=== PATIENT | female | born 1970 | race Caucasian/White ===

== ENCOUNTER → 2021-07-25 15:46 | Outpatient (CLI) | payer OTHER, SELFPAY ==
--- NOTE | ~2021-07-25 | XR_ITS ---
XR chest 2V 07/25/2021 16:35 Indication: Wheezing and cough Procedure: 2 view chest Comparison: No prior studies for comparison. Findings: Heart size normal. No focal air space disease, pulmonary edema, pleural effusion or suspect ed pneumothorax. No acute osseous abnormality. Impression: 1: No acute cardiopulmonary disease. Reviewed, dictated and finalized at location A. Impression: 1: No acute cardiopulmonary disease.
== END ==
PROVIDERS: PCP Family Medicine; Visit Provider Physician Assistant Medical
DX: R06.2 Wheezing (principal)
CPT/HCPCS: 71046

== ENCOUNTER 2022-12-08 08:38 | Emergency (ER) | payer OTHER, SELFPAY ==
--- NOTE | ~2022-12-08 | XR_ITS ---
EXAMINATION: XR chest 2V DATE: 12/08/2022 09:10 INDICATION: Chest pain. TECHNIQUE: Frontal and lateral views of the chest were obtained. COMPARISON: Chest 2 views 07/25/2021 FINDINGS: There is no pneumonia, pleural effusion, or pneumothorax. The heart size is normal. IMPRESSION: 1. No acute cardiopulmonary disease. Reviewed, dictated and finalized at location A. /DISPATCHER
--- NOTE | 2022-12-08 08:42 | ED.CHESTPAIN ---
HPI - Chest Pain General Stated Complaint: Shortness of Breath,Chest Pain Time Seen by Provider: 12/08/22 08:50 Source: patient Mode of arrival: ambulatory Limitations: no limitations History of Present Illness HPI narrative: Kellie is a 52-year-old female patient presenting to the clinic today with complaints of shortness of breath and left-sided chest pain tightness. She reports no history of COPD or asthma. She denies having a cough. States the pain is worse when she is bending forward or when she is laying on her right or left side. States she feels as though she can not take a deep breath as this causes pain. Denies any injury to her chest. Rates her pain currently a 2.5/10. She denies any radiation of pain. She denies any headache, dizziness, or visual changes. She is a nonsmoker. Patient denies any history of hyperlipidemia, high blood pressure, diabetes, or any family history of hyperlipidemia, high blood pressure, or diabetes. Related Data Home Medications Medication Instructions Recorded Confirmed No Home Medications 07/26/21 07/26/21 Allergies Allergy/AdvReac Type Severity Reaction Status Date / Time amoxicillin Allergy Mild HIVES Verified 12/08/22 09:02 ampicillin Allergy Mild hives Verified 12/08/22 09:02 sulfamethizole Allergy Mild hives Verified 12/08/22 09:02 sulfamethoxazole Allergy Mild HIVES Verified 12/08/22 09:02 trimethoprim Allergy Mild hives Verified 12/08/22 09:02 Review of Systems Review of Systems: Pertinent positives per HPI. Patient denies any fever, chills, rash, headache, visual changes, dizziness, cough, palpitations, nausea, vomiting, diarrhea, constipation, abdominal pain, or any urinary issues. [facility] Past Medical History Medical History BMI 33.0-33.9,adult Family History Family History Father Hypertension Grandparent Family history of coronary artery disease Social History Social History Smoking status: Never smoker Second hand tobacco smoke exposure: No Alcohol intake: current Drinks per week: 3 Substance use: never Substance use type: does not use Living arrangements: with family Occupation/Education: occupation Gender identity (if verbalized by the patient): Female Sexual Orientation (if Verbalized by the Patient): Straight or Heterosexual Spiritual care concerns: No Agree to blood products: Yes Comments At the time of my signature, I reviewed and agree with the nursing past medical, surgical, social, and family history. There is no relevant family history pertinent to the patient complaint. Exam Narrative: General: Well-developed, well nourished, in no apparent distress Head: Normocephalic, atraumatic Eyes: Pupils equally round and reactive to light bilaterally, EOM intact, sclera and conjunctive clear, no discharge, lids normal Ears: TMs intact and clear, ear canals clear, no drainage, grossly hearing normal. Nose: Nares patent, no discharge, no inflammation, no sinus tenderness. Mouth: Oral pharynx without lesions or masses, good dentition, MMM. Neck: Supple, trachea midline, no enlargement of anterior or posterior cervical nodes, no thyroid masses or goiter palpable. Chest: Even rise and fall of chest wall with respirations, no bruising or swelling noted, nontender to palpation over the anterior chest wall Cardio: Regular rate and rhythm, s1 and s2 normal, no murmur appreciated. Resp: Clear to auscultation bilaterally, no rhonchi, rales, wheezing or rubs Course Course Emergency Course: Portions of this record may have been created with voice recognition software. Level of Care: Express Care Visit Vital Signs Vital signs: Vital signs reviewed Transfer Transfered to: Fa[facility]o Transportation: Other (Private car) Transfer rationale: Addie
[2022-12-08 08:49] VITALS: BP 116/54; PULSE 63; RESP 18; TEMP 36.4; O2SAT 100
--- NOTE | 2022-12-08 16:05 | ECG_ITS ---
Measurements Intervals [place] Rate: 59 P: 30 MD: 194 QRS: 20 QRSD: 66 T: 23 QT: 394 QTc: 392 Interpretive Statements SINUS BRADYCARDIA BORDERLINE R WAVE PROGRESSION, ANTERIOR LEADS BASELINE ARTIFACT- I, II, III, AVR, AVL, AVF, V1-V6 BORDERLINE ECG COMPARED TO ECG 12/08/2022 08:59:57 SINUS BRADYCARDIA NOW PRESENT Electronically Signed On 12-08-2022 17:18:50 RETARDER OPERATOR by Jun Man D.O.
== END 2022-12-08 09:30 | disposition short-term general hospital (02) ==
PROVIDERS: Emergency Provider Nurse Practitioner Family; PCP Family Medicine
DX: R07.9 Chest pain, unspecified (principal); R06.02 Shortness of breath
CPT/HCPCS: 71046; 93005; 99213; G0463

== ENCOUNTER 2022-12-08 09:38 | Emergency (ER) | payer OTHER, SELFPAY ==
[2022-12-08] VITALS (8 sets, daily range): BP systolic 108–125; BP diastolic 45–82; PULSE 61–69; RESP 17–20; TEMP 36.6; O2SAT 99–100
--- NOTE | ~2022-12-08 | CT_ITS ---
EXAMINATION: CTA chest PE protocol DATE: 12/08/2022 12:02 INDICATION: Shortness of breath. Left-sided chest pain. TECHNIQUE: Computed tomography angiography (CTA) of the chest was performed with 100 mL Omnipaque-350 intravenous contrast timed to evaluate the pulmonary arteries. Coronal maximum intensity projection 3D-reconstructions were created by the technologist. Automated exposure control and iterative reconst ruction technique were employed. The dose-length product was 234.15 mGy-cm. COMPARISON: None. FINDINGS: There is mild scarring in paraspinal right lower lobe. There is minimal atelectasis bilater ally. There is a trace left pleural effusion. There are nodules in the thyroid measuring up to 2.1 cm . The heart size is normal. No pericardial effusion. There is no pulmonary embolus. There is mild tho racic spondylosis. IMPRESSION: 1. No pulmonary embolus. 2. Multinodular goiter. Thyroid ultrasound is recommended for risk stratification. Reviewed, dictated and finalized at location A. HALMOLOGY ASSISTANT IMPRESSION: 1. No pulmonary embolus. 2. Multinodular goiter. Thyroid ultrasound is recommended for risk stratificati on.
--- NOTE | 2022-12-08 09:50 | ED.GENADULT ---
HPI - General Adult General Chief complaint: Shortness of Breath/Dyspnea Stated complaint: sob Time Seen by Provider: 12/08/22 09:46 Source: patient and old records reviewed Mode of arrival: ambulatory Limitations: no limitations History of Present Illness HPI narrative: Patient is a 52 y/o female who presents to the ED with c/o CP. Patient reports she woke up Saturday morning with pain in her L sided and midsternal chest. She states the pain was constant throughout the day. She woke up with the pain, as well. She took Aleve this day which completely resolved her pain. She assumed it was just a muscle strain. She woke up again this morning with the pain and decided to be evaluated. Patient was seen in urgent care prior to arrival and referred here for further evaluation. Patient is very active and walks 2 miles per day. She notes she went bowling last night. She denies any aggravation of pain with exertion or limitations in typical exercising over the last couple days. Pain is worse with bending over, sleeping on left or right sides, taking deep breaths. She denies difficulty breathing, recent cough or cold symptoms, nausea, vomiting, abdominal pain, fevers. Patient denies history of hypertension, hyperlipidemia, diabetes, smoking, family history of heart disease, history of blood clots. Denies recent long distance travel, pain or swelling in legs. Related Data Home Medications Medication Instructions Recorded Confirmed No Home Medications 07/26/21 12/08/22 Allergies Allergy/AdvReac Type Severity Reaction Status Date / Time amoxicillin Allergy Mild HIVES Verified 12/08/22 10:53 ampicillin Allergy Mild hives Verified 12/08/22 10:53 sulfamethizole Allergy Mild hives Verified 12/08/22 10:53 sulfamethoxazole Allergy Mild HIVES Verified 12/08/22 10:53 trimethoprim Allergy Mild hives Verified 12/08/22 10:53 Review of Systems Review of Systems: CONSTITUTIONAL: Denies fever, chills, or sweats. ENT: Denies rhinorrhea, congestion, sore throat. CARDIOVASCULAR: See HPI. RESPIRATORY: See HPI. GASTROINTESTINAL: Denies abdominal pain, nausea, vomiting, or diarrhea. MUSCULOSKELETAL: See HPI. NEUROLOGIC: Denies headache, numbness, or weakness. All systems reviewed & are unremarkable except as noted in HPI and below PMFSH Past Medical History Medical History BMI 33.0-33.9,adult Surgical History Surgical History No pertinent past surgical history Family History Family History Father Hypertension Grandparent Family history of coronary artery disease Social History Social History Smoking status: Never smoker Second hand tobacco smoke exposure: No Alcohol intake: current Drinks per week: 3 Substance use: never Substance use type: does not use Living arrangements: with family Occupation/Education: occupation Gender identity (if verbalized by the patient): Female Sexual Orientation (if Verbalized by the Patient): Straight or Heterosexual Spiritual care concerns: No Agree to blood products: Yes Exam Narrative: GENERAL: Well appearing, well-nourished, non-toxic, in no acute distress. HEAD: Normocephalic, atraumatic. NECK: Supple. No adenopathy, no masses. RESPIRATORY: Airway patent, respirations nonlabored. Clear to auscultation bilaterally, no rales, rhonchi, wheezing. CARDIOVASCULAR: Regular rate and rhythm without murmurs, rubs, or gallops. Radial pulses 2+ and equal bilaterally. ABDOMINAL: Soft, nontender, nondistended, no hepatosplenomegaly. Normoactive BS. MUSCULOSKELETAL: Moves all extremities. Strength/ROM intact without gross deformities. No edema. No calf tenderness. No chest wall tenderness palpation. SKIN: Warm, dry, normal color. No rashes.
--- NOTE | 2022-12-08 09:53 | ECG_ITS ---
Measurements Intervals [place] Rate: 65 P: 51 ME: 186 QRS: 53 QRSD: 81 T: 40 QT: 381 QTc: 396 Interpretive Statements SINUS RHYTHM DELAYED PRECORDIAL R/S TRANSITION SUBTLE ST ELEVATION IN ANTEROLAT/INF LEADS- PROBABLY EARLY REPOLARIZATION ABNORMALITY BASELINE ARTIFACT- I, III, AVR BORDERLINE ECG NO PREVIOUS ECG AVAILABLE FOR COMPARISON Electronically Signed On 12-08-2022 10:16:15 CONTINUOUS DRYOUT OPERATOR by Jun Man D.O.
[2022-12-08 10:27] LABS: Partial Thromboplastin Time 28.3 SECONDS (22.3-36.8)
[2022-12-08 10:34] LABS: Alanine Aminotransferase 20 U/L (6-35); Albumin Level 4.3 g/dL (3.5-5.1); Alkaline Phosphatase 55 U/L (38-126); Anion Gap 5 mmol/L (8-16); Aspartate Amino Transferase 25 U/L (14-36); Bilirubin,Total 1.4 mg/dL (0.2-1.3); Blood Urea Nitrogen 17 mg/dL (7-17); Carbon Dioxide 31 mmol/L (22-30); Chloride 103 mmol/L (98-107); D Dimer 0.58 ug/mL (<0.48); Estimated Glomerular Filt Rate > 60; Glucose 84 mg/dL (65-110); Lipase 127 U/L (23-300); Potassium 4.9 mmol/L (3.4-5.0); Sodium 139 mmol/L (137-145)
[2022-12-08 10:39] LABS: Troponin I < 0.012 ng/mL (0.000-0.034)
[2022-12-08 10:47] LABS: Basophils Percent Auto 0.4 % (0.2-1.2); Eosinophils Absolute Auto 0.1 K/mm3 (0-0.3); Eosinophils Percent Auto 0.6 % (0-4.4); Immature Granulocyte Absolute 0.03 K/mm3 (0.00-0.031); Immature Granulocyte Percent A 0.4 % (0-0.5); Lymphocytes Absolute Auto 1.23 K/mm3 (0.9-3.2); Lymphocytes Percent Auto 15.9 % (18.3-44.2); Mean Corpuscular HGB Conc 33.3 g/dl (32-36); Mean Corpuscular Volume 89.9 fl (80-100); Mean Platelet Volume 9.4 fl (7.4-10.4); Monocytes Absolute Auto 0.7 K/mm3 (0.1-0.6); Monocytes Percent Auto 8.4 % (2.6-8.5); Neutrophils Absolute Auto 5.8 K/mm3 (1.3-6.7); Neutrophils Percent Auto 74.3 % (45.5-73.1); Platelet Count Result 221 k/mm3 (150-375); Red Blood Count 4.67 M/mm3 (4.2-5.4); Red Cell Distribution Width 12.3 % (11.5-14.5); White Blood Count 7.7 K/mm3 (4.5-10.0)
[2022-12-08 11:25] LABS: Appearance Urine Clear (Clear); Bilirubin Urine Negative (Negative); Blood Urine Negative (Negative); Color Urine Yellow (Yellow); Glucose Urine UA Negative (Negative); Ketones Urine Negative (Negative); Leukocyte Esterase Ur Negative LEU/UL (Negative); Nitrate Urine Negative (Negative); Protein Urine Negative (Negative); Specific Grav Ur 1.015 (1.001-1.035); Urobilinogen Urine 0.2 mg/dL (<2.0)
[2022-12-08 11:26] LABS: Add Urine Microscopic? NO
== END 2022-12-08 12:37 | disposition home or self-care (01) ==
PROVIDERS: Emergency Provider Physician Assistant; PCP Family Medicine
DX: R07.89 Other chest pain (principal); E04.2 Nontoxic multinodular goiter; R94.31 Abnormal electrocardiogram [ECG] [EKG]
CPT/HCPCS: 36415; 71046; 71275; 80053; 81003; 81025; 83690; 84484; 85025; 85380; 85610; 85730; 93005; 99284; Q9967

== ENCOUNTER → 2023-02-13 14:49 | Outpatient (CLI) | payer OTHER, SELFPAY ==
--- NOTE | ~2023-02-13 | US_ITS ---
EXAMINATION: US thyroid DATE: 02/13/2023 15:05 INDICATION: Nontoxic single thyroid nodule. TECHNIQUE: Multiple ultrasound images of the thyroid were obtained. COMPARISON: Chest CT 12/08/2022 FINDINGS: The right thyroid lobe measures 6.1 x 1.8 x 1.7 cm. The left thyroid lobe measures 6.6 x 3.0 x 3.4 c m. In the left thyroid lobe, there is a 4.8 cm solid, hypoechoic, wider than tall nodule with smooth margin without echogenic foci (TI-RADS TR4). In the left thyroid lobe, there is a 7 mm solid, very h ypoechoic, wider than tall nodule with smooth margin without echogenic foci (TR4). In the right thyro id lobe, there is a 15 mm solid, isoechoic, wider than tall nodule with ill-defined margin without ec hogenic foci (TR3). In the right thyroid lobe, there is a 10 mm solid, hypoechoic, wider than tall no dule with lobulated margin without echogenic foci (TR4). IMPRESSION: 1. Multinodular goiter. Ultrasound-guided fine-needle aspiration of the 4.8 cm left thyroid nodule is recommended. Reviewed, dictated and finalized at location A.
== END ==
PROVIDERS: PCP Family Medicine; Visit Provider Family Medicine
DX: E04.2 Nontoxic multinodular goiter (principal)
CPT/HCPCS: 76536

== ENCOUNTER 2023-04-08 07:13 | Day surgery (SDC) | payer OTHER, SELFPAY ==
[2023-02-18 10:56] VITALS: BMI 26.1
[2023-03-28 13:16] VITALS: BMI 25.2
--- NOTE | 2023-04-05 13:14 | WPDANESEPPF ---
Anes - Initial Pre Proc Eval Procedure: Operation Date: 04/08/23 09:00 Proposed Procedures p Screening Colonoscopy - Ramin Meade MD Date/Time: 04/05/23 13:14 Surgeon: Ramin Meade MD Pre Op Diagnosis: Neoplasm Screening Patient Data Age: 52 Gender: F Height: 1.7 m Weight: 73 kg Allergies Allergy/AdvReac Type Severity Reaction Status Date / Time amoxicillin Allergy Mild HIVES Verified 04/08/23 07:34 ampicillin Allergy Mild hives Verified 04/08/23 07:34 sulfamethizole Allergy Mild hives Verified 04/08/23 07:34 sulfamethoxazole Allergy Mild HIVES Verified 04/08/23 07:34 trimethoprim Allergy Mild hives Verified 04/08/23 07:34 Home Medications Medication Instructions Recorded Confirmed Type No Home Medications 07/26/21 04/08/23 History Patient hx anesthesia problems: none Family hx anesthesia problems: none Results Review: All pre-operative results and documents have been reviewed as part of the pre-operative evaluation. [facility] Past Medical History Medical History BMI 26.0-26.9,adult BMI 33.0-33.9,adult Screen for colon cancer Screening for lipid disorders Thyroid nodule Surgical History Surgical History No pertinent past surgical history Family History Family History Father Hypertension Grandparent Family history of coronary artery disease Mother , Dementia No problems noted. Sibling No problems noted. 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[employer] Gender identity (if verbalized by the patient): Female Sexual Orientation (if Verbalized by the Patient): Straight or Heterosexual Spiritual care concerns: No Agree to blood products: Yes Anes - Hector Final PreProcedure Day of Procedure 04/05/23 13:14 Patient weight: overweight Heart: regular rate and rhythm Lungs: clear to auscultation Airway: Mallampati scale class II Neurological: alert and oriented Last oral intake: >/= 8 hours ASA classification: II Emergent: no Anesthetic plan: proceed Anesthesia type and monitoring: general GIVS and standard monitoring Results Review: All pre-operative results and documents have been reviewed as part of the pre-operative evaluation. Informed Consent: The patient's anesthetic plan and its attendant risks and benefits were discussed with the patient/family/POA. Questions were solicited and answers provided to the satisfaction of the patient/family/POA.
--- NOTE | 2023-04-05 16:09 | P.HP_ITS ---
History of Present Illness History of Present Illness Consent: Risks, benefits, and alternatives have been discussed and questions answered. Patient agrees to proceed with procedure. Chief complaint: Neoplasm Screening Narrative: Kellie Hutchins is a 52 year old female Referred for colon cancer screening. Review of Systems Review of Systems: All systems reviewed & are unremarkable except as noted in HPI and below PMFSH Past Medical History Medical History BMI 26.0-26.9,adult BMI 33.0-33.9,adult Screen for colon cancer Screening for lipid disorders Thyroid nodule Surgical History Surgical History No pertinent past surgical history Family History Family History Father Hypertension Grandparent Family history of coronary artery disease Mother , Dementia No problems noted. Sibling No problems noted. 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[employer] Gender identity (if verbalized by the patient): Female Sexual Orientation (if Verbalized by the Patient): Straight or Heterosexual Spiritual care concerns: No Agree to blood products: Yes Meds Home Medications and Allergies Home Medications Medication Instructions Recorded Confirmed Type No Home Medications 07/26/21 04/08/23 History Allergies Allergy/AdvReac Type Severity Reaction Status Date / Time amoxicillin Allergy Mild HIVES Verified 04/08/23 07:34 ampicillin Allergy Mild hives Verified 04/08/23 07:34 sulfamethizole Allergy Mild hives Verified 04/08/23 07:34 sulfamethoxazole Allergy Mild HIVES Verified 04/08/23 07:34 trimethoprim Allergy Mild hives Verified 04/08/23 07:34 Exam Resp: Auscultation: clear to auscultation bilaterally Cardio: Rate: regular rate Rhythm: regular rhythm GI: GI Palp: Yes Soft to palpation and No Tenderness to palpation present (GI) Assessment and Plan Assessment and plan (1) Screen for colon cancer: Code(s): Z12.11 - Encounter for screening for malignant neoplasm of colon Status: Acute Assessment and Plan: Colonoscopy with possible biopsy or polypectomy or cautery or injection of substances.
[2023-04-08 07:35] VITALS: BP 106/69; PULSE 60; RESP 18; TEMP 36.7; O2SAT 100
[2023-04-08] MEDS: LACTATED RINGERS 1,000 ML 150 ML IV CONT (07:58)
[2023-04-08 09:05] VITALS: BP 99/56; PULSE 69; RESP 18; O2SAT 18
[2023-04-08 09:15] VITALS: BP 106/71; PULSE 73; RESP 18; O2SAT 100
[2023-04-08 09:25] VITALS: BP 106/68; PULSE 57; RESP 20; O2SAT 100
--- NOTE | 2023-04-08 13:20 | WPDANESPN ---
Anes - Prog Note Post-Op Date/Time: 04/08/23 13:20 Cardiovascular status: normal Respiratory status: normal Airway patency: baseline Mental status: baseline Post-Op hydration status: normal Vital Signs: Last Vital Signs Temp 36.7 C 04/08/23 07:35 Pulse 57 L 04/08/23 09:25 Resp 20 04/08/23 09:25 BP 106/68 04/08/23 09:25 Pulse Ox 100 04/08/23 09:25 O2 Del Method Room Air 04/08/23 09:25 Pain Score (VAS): 0 I/O: Intake & Output 04/07/23 04/08/23 04/08/23 23:59 07:59 15:59 Intake Total 450 Balance 450 Post-procedural complaints: none Patient Feedback: Patient satisfied with anesthetic care. Other Findings: Patient vital signs back to baseline. Patient denies nausea and vomiting. Patient's pain under control. Patient OK for discharge.
== END 2023-04-08 09:40 | disposition home or self-care (01) ==
PROVIDERS: PCP Family Medicine; Visit Provider Internal Medicine Gastroenterology
PROC: 0DJD8ZZ Inspection of Lower Intestinal Tract, Via Natural or Artificial Opening Endoscopic (ICD-10-PCS; CPT 45378; principal; 2023-04-08 09:00)
DX: Z12.11 Encounter for screening for malignant neoplasm of colon (principal)
CPT/HCPCS: 45378

== ENCOUNTER 2023-04-19 09:03 | Outpatient (CLI) | payer OTHER, SELFPAY ==
--- NOTE | ~2023-04-19 | US_ITS ---
EXAMINATION: US FNA w image guidance DATE: 04/19/2023 10:16 INDICATION: Nontoxic single thyroid nodule. TECHNIQUE: The procedure and its benefits and risks were discussed with the patient. Risks specifically discusse d included bleeding. The patient verbalized understanding of the risks and agreed to proceed. The nec k was prepped and draped in the usual sterile manner. 1% lidocaine was used for local anesthesia. 6 passes were made with a 25G needle into the lesion under ultrasound guidance. There were no immedia te complications. FINDINGS: Grayscale ultrasound images demonstrate needles advanced into a 4.8 cm nodule in left thyroid lobe fo r biopsy. IMPRESSION: 1. Ultrasound-guided fine needle aspiration of a left thyroid nodule. Reviewed, dictated and finalized at location A.
== END 2023-04-19 09:04 | disposition home or self-care (01) ==
PROVIDERS: PCP Family Medicine; Visit Provider Nurse Practitioner Family
DX: E04.1 Nontoxic single thyroid nodule (principal)
CPT/HCPCS: 10005; 88173; 88305

== ENCOUNTER → 2023-04-24 12:05 | Outpatient (CLI) | payer OTHER, SELFPAY ==
--- NOTE | ~2023-04-24 | MM_ITS ---
EXAMINATION: MM screening sherine BI w kandy HISTORY: Screening TECHNIQUE: Craniocaudal and mediolateral oblique 3-D tomosynthesis images were obtained and synthetic 2-D images were generated. CAD analysis was submitted and interpreted. COMPARISON: Comparison to multiple prior studies sequentially, with oldest reviewed study dated 09/19. BREAST PARENCHYMAL COMPOSITION: The breasts are extremely dense, which lowers the sensitivity of mamm ography. FINDINGS: There is no evidence of suspicious mass, calcification, or architectural distortion to sugg est malignancy in either breast. There has been no suspicious interval change. IMPRESSION: 1. No mammographic evidence of malignancy. 2. Recommend routine screening mammography in one year. BI-RADS Category 1: Negative Reviewed, dictated and finalized at location A.
== END ==
PROVIDERS: PCP Nurse Practitioner Obstetrics & Gynecology; Visit Provider Nurse Practitioner Obstetrics & Gynecology
DX: Z12.31 Encounter for screening mammogram for malignant neoplasm of breast (principal)
CPT/HCPCS: 77063; 77067

== ENCOUNTER 2024-11-03 14:53 | Outpatient (CLI) | payer OTHER, SELFPAY ==
--- NOTE | ~2024-11-03 | MM_ITS ---
EXAMINATION: MM screening sherine BI w kandy HISTORY: Screening TECHNIQUE: Craniocaudal and mediolateral oblique 3-D tomosynthesis images were obtained and synthetic 2-D images were generated. CAD analysis was submitted and interpreted. COMPARISON: Comparison to multiple prior studies sequentially, with oldest reviewed study dated 04/2015. BREAST PARENCHYMAL COMPOSITION: Dense: The breasts are extremely dense, which lowers the sensitivity of mammography. FINDINGS: There is no evidence of suspicious mass, calcification, or architectural distortion to sugg est malignancy in either breast. There has been no suspicious interval change. IMPRESSION: 1. No mammographic evidence of malignancy. 2. Recommend routine screening mammography in one year. BI-RADS Category 1: Negative Reviewed, dictated and finalized at location B. CTOR AUTO
== END 2024-11-03 14:54 | disposition home or self-care (01) ==
LOC: MICIMG 14:54
PROVIDERS: PCP Family Medicine; Visit Provider Obstetrics & Gynecology
DX: Z12.31 Encounter for screening mammogram for malignant neoplasm of breast (principal)
CPT/HCPCS: 77063; 77067

== ENCOUNTER 2025-09-20 06:29 | Day surgery (SDC) | payer OTHER, SELFPAY ==
[2025-06-28 14:26] VITALS: BMI 26.4
[2025-09-08 10:58] VITALS: BMI 26.5
--- OUTSIDE RECORDS SUMMARY | 2025-09-20 06:31 | XMS_ITS | Clinical Summary ---
Author Organization [facility] Address [address] [place] [address] Care Team Providers Care Wire Photo Operator Name Role Phone Unavailable Primary Care Provider Unavailabl e Social History Tobacco Use Types Packs/Day Years Used Date Smoking Tobacco: Never Assessed Comments Unknown Sex and Gender Information Value Date Recorded Sex Assigned at Not on file Legal Sex Female 7:16 PM CDT Gender Identity Not on file Sexual Orientation Not on file Plan of Treatment Health Maintenance Due Date Last Done Comments Cervical Cancer Screening Pa p Smear (Age 30 to 64) Every 3 Years 1972 Colorectal Cancer Screening Colonoscopy (10 Years) 1972 Annual Physical 1975 Hepatitis C 1990 DTaP, Tdap and Td Vaccines ( 1 - Tdap) 1991 Hepatitis B Vaccines (1 of 3 - 19+ 3-dose series) 1991 Cervical Cancer Screening Pa p with HPV Testing (Age 30 to 64) Every 5 Years 2002 Cervical Cancer Screening with HPV 2002 Mammogram Screening 2012 Pneumococcal Vaccine: 50+ Ye ars (1 of 1 - PCV) 2022 Zoster Vaccines (1 of 2) 2022 COVID-19 Vaccine ( - 2024-2 6 season) 2025 Influenza Adult (#1) 2025 Hepatitis A Vaccines Aged Out No long er eligible based on patient's age to complete this topic Meningococcal B Vaccine Aged Out No l onger eligible based on patient's age to complete this topic Meningococcal Vaccine Aged Out No curt urszula eligible based on patient's age to complete this topic RSV Immunizations Under 20 Months Aged Out No longer eligible based on patient's age to complete this topic
--- OUTSIDE RECORDS SUMMARY | 2025-09-20 06:31 | XMS_ITS | Data Portability ---
Author Organization [facility] [place] Address [address] [place] [address] [place] [address] Care Team Providers Care Associate Quality Engineer Name Role Phone WING RICHARDS Primary Care Provider Assessment Encounter Date Assessment Date Assessment LastModified by Organization Details LastModified Time 11/15/2022 11/15/2022 Annual gynecological exam performed. Patient will come back in a year unless there are new symptoms. [email or web address] Not available 11/15/2022 14:07:24 11/29/2023 11/29/2023 Annual gynecological exam performed. Patient will come back in a year unless there are new symptoms. [email or web address] Not available 11/29/2023 09:00:53 12/02/2024 12/02/2024 Annual gynecological exam performed. Patient will come back in a year unless there are new symptoms. [email or web address] Not available 11/30/2024 12:16:08 Plan of Treatment Reminders Order Date Submit Date Provider Last Modified By Organization Details Last Modified Time Details Appointments None recorded. Lab hormone panel, serum or plasma 2024 025 [facility] (Lab), [address], [place], [address], 03:59:32 test, urine 2024 025 [email or web address] [place], [address], [place], [address], 5 12:42:16 Referral None recorded. Procedures None recorded. Surgeries None recorded. Imaging MAMMO, screening, digital, bilateral 2024 025 LINSEY [facility], [address], [place], [address], 5 05:01:42 MAMMO, screening, bilateral 2023 024 [email or web address] [facility], [address], [place], [address], 4 11:33:47 Medication Orders None recorded. Patient TargetsNo targets recorded. Patient InstructionsNo instructions recorded. Reason for Referral None Reported. 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 Elect honey hernandez smooth d by Dana Clay, CT on 023 at 5:49 PM ----- ----- ----- ----- ----- ----- ----- ----- ----- ----- ----- ----- ----- ----- ----- ----- ----- ---- HPV RESUL TS: HPV mRNA E6/E7 : No HPV mRNA Detec chetna NOTE: This high risk HPV mRNA assay detec ts fourt een high- risk HPV types (16, 18, 31, 33, 35, 39, 45, 51, 52, 56, 58, 59, 66, 68) witho ut diffe renti ation . COMME NT: Note: This speci men was revie wed by a Cytot echno logis t and/o r Patho logis t (as indic ated in this repor t) after evalu ation using the Thinp rep Imagi ng Syste m. CLINI ALONZO INFOR MATIO N: Menst rual Statu s: LMP (if appli cable ): Clini alonzo Histo ry/Pr eviou s Pap: Type of Neopl sudhakar (if appli cable ): Signi fican t Clini alonzo Findi ngs: Other Histo ry: Hormo deonte (if appli cable ): PAP EDUCA MARIANO L NOTE: The Pap Test is a scree kush test with an inher ent false negat ryan rate. Liqui d-bas ed sampl ing may decre ase, but will not elimi jeanette, false negat ryan resul ts. A negat ryan resul t does not precl ude the prese nce and/o r devel opmen t of disea se, since the prese nce of abnor mal cells in the sampl e depen ds on the locat ion of the lesio n and sampl ing techn ique. Nate nued regul ar scree kush is the best metho d of cance r preve ntion . If repor chetna cytol ogic findi ng do not corre late with physi alonzo and/o r histo rical findi ngs, furth er inves tigat ion is recom low d, as jose david matias nted. 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 Elect honey hernandez smooth d by Rhoda Harmon, CT on 2023 at 2:46 PM ----- ----- ----- ----- ----- ----- ----- ----- ----- ----- ----- ----- ----- ----- ----- ----- ----- ---- HPV RESUL TS: HPV mRNA E6/E7 : No HPV mRNA Detec chetna NOTE: This high risk HPV mRNA assay detec ts fourt een high- risk HPV types (16, 18, 31, 33, 35, 39, 45, 51, 52, 56, 58, 59, 66, 68) witho ut diffe renti ation . COMME NT: This speci men was revie wed by a Cytot echno logis t and/o r Patho logis t (as indic ated in this repor t) after evalu ation using the Thinp rep Imagi ng Syste m. CLINI ALONZO INFOR MATIO N: Menst rual Statu s: LMP (if appli cable ): Clini alonzo Histo ry/Pr eviou s Pap: Type of Neopl sudhakar (if appli cable ): Signi fican t Clini alonzo Findi ngs: Other Histo ry: Hormo deonte (if appli cable ): PAP EDUCA MARIANO L NOTE: The Pap Test is a scree kush test with an inher ent false negat ryan rate. Liqui d-bas ed sampl ing may decre ase, but will not elimi jeanette, false negat ryan resul ts. A negat ryan resul t does not precl ude the prese nce and/o r devel opmen t of disea se, since the prese nce of abnor mal cells in the sampl e depen ds on the locat ion of the lesio n and sampl ing techn ique. Nate nued regul ar scree kush is the best metho d of cance r preve ntion . If repor chetna cytol ogic findi ng do not corre late with physi alonzo and/o r histo rical findi ngs, furth er inves tigat ion is recom low d, as clini serina warraiden nted. Not Available [facility] (Lab) [address] , [place], [address], 12/02/2023 15:50:06 05/24/20 25 05/24/2025 pregn shelly test, urine HCG negati ve Not Available [place] [address], [place], [address], 05/24/2025 12:41:46 08/16/20 25 08/16/2025 FSH, LH, ESTRA DIOL estradiol <5.0 pg/mL This assay was perfo rmed using [employer] ratio n reage nts and test kits. Value s obtai daxa with other assay metho ds or kits canno t be used inter patel eably . Femal e Estra diol Range s: Folli cular phase 12.4- 233 pg/mL Ovula tion phase 41.0- 398 pg/mL Lutea l phase 22.3- 341 pg/mL Postm enopa usal <5-13 8 pg/mL Healt hy Pregn ant Women 1st Trime ster 154-3 243 pg/mL 2nd Trime ster 1561- 67245 pg/mL 3rd Trime ster 8525- >3000 0 pg/mL Not Available [facility] (Lab) [address] , [place], [address], 08/17/2025 03:59:32 08/16/20 25 08/16/2025 FSH, LH, ESTRA DIOL FSH 100.0 mIU/m L This assay was perfo rmed using [employer] reage nts and test kits. Value s obtai daxa with other assay metho ds or kits canno t be used inter patel easaint joseph . Femal es Folli cular : 3.5-1 2.5 mIU/m L Ovula tion: 4.7-2 1.5 mIU/m L Lutea l: 1.7-7 .7 mIU/m L Postm enopa use: 25.8- 134.8 mIU/m L Not Available [facility] (Lab) [address] [facility], [place], [address], 08/17/2025 03:59:32 08/16/20 25 08/16/2025 FSH, LH, ESTRA DIOL LH 44.4 mIU/m L This assay was perfo rmed using [employer] reage nts and test kits. Value s obtai daxa with other assay metho ds or kits canno t be used inter [facility] easaint joseph . Femal es Mid-F ollic ular: 2.4-1 2.6 mIU/m L Mid-C ycle: 14.0- 95.6 mIU/m L Mid-L uteal : 1.0-1 1.4 mIU/m L Postm enopa use: 7.7-5 8.5 mIU/m L Not Available [facility] (Lab) [address] [place], [address], 08/17/2025 03:59:32 Result Notes None recorded. Problems Name Problem SNOMED Code Status Onset Date Resolution Date Notes Provider Name and Address Organization Details Recorded Time Intrauteri ne contracept ryan device in situ 824005099 Active inserted 05/28/2017 Martine Bucio [facility] 13:55:37 Problem Notes None recorded. Procedures Surgical History Date Name Laterality Status Provider Name and Address Organization Details Recorded Time 05/24/20 25 IUD Removal completed QUENTIN MURPHY NP [address], [place], [address], [facility] 05/24/2025 09:24:58 10/18/20 24 Date of Last Mammogram completed [facility] 12/02/2024 09:07:00 11/29/19 24 Date of Last Pap Smear completed [facility] 11/30/2024 12:16:51 11/18/19 23 Date of Last Colonoscopy completed QUENTIN MURPHY NP [address], [place], [address], [facility] 12/02/2024 09:12:20 06/02/20 13 Colposcopy completed [facility] 11/15/2022 13:49:18 06/02/20 12 Colposcopy completed [facility] 11/15/2022 13:39:36 07/19/20 09 section completed [facility] 11/15/2022 13:49:05 11/18/19 01 Colposcopy completed [facility] 11/15/2022 14:11:45 Imaging Results None recorded. Procedure Notes None recorded. Medical Equipment None Reported. Allergies Allergen ID Allergen Name Allergen Category Reaction Reaction Severity Criticality Documentation Date Start Date Code Code System Note Provider Name and Address Organization Details Recorded Time 16490 ampicilli n medicatio n Not available Not available Not available 11/04/2020 733 RxNorm Comme nt: [facility]at [facility]; Not Available [facility] 0 14:17:57 56632 sulfameth oxazole medicatio n Not available Not available Not available 11/04/2020 88127 RxNorm Comme nt: Locat ion: [facility] Cau sativ e Agent : Septr a DS; Not Available [facility] 0 14:17:57 17443 trimethop rim medicatio n Not available Not available Not available 11/04/2020 34560 RxNorm Comme nt: Locat ion: [facility] Cau sativ e Agent : Septr a DS; Not Available [facility] 0 14:17:57 Medications Name Sig Start Date Stop Date Status Note LastModified by Organization Details LastModified Time Mirena 21 mcg/24 hr (up to 8 years) 52 mg intrauter ine device 2016 active Prescrib ed Elsewher e: No Locat ion: Gisselle Ricketts [facility] odify By: marcello cordova DateTime : 06/11/20 12 11:30:00 AM Not Available Not Available Not Available methocarb macie 500 mg tablet TAKE 1 TABLET BY MOUTH THREE TIMES A DAY NEEDED FOR MUSCLE SPASM 05/23 completed Not Available Not Available Not Available prednison e 10 mg tablet 30 MG ORALLY DAILY FOR 5 DAYS 05/23 completed Not Available Not Available Not Available triamcino lone acetonide 0.5 % topical cream APPLY TOPICALL Y TWICE A DAY 05/23 completed Not Available Not Available Not Available Diflucan 150 mg tablet take 1 tablet by oral route once 06/18 completed Prescrib ed Elsewher e: No [facility] odify By: merlene hernandezuntemerita DateTime : 01/04/20 17 01:59:22 PM Not Available Not Available Not Available scopolami ne 1 mg over 3 days transderm al patch APPLY 1 PATCH TRANSDER MIRTHA EVERY 72 HOURS 05/23 completed Not Available Not Available Not Available fiber oral powder 05/23 completed Prescrib ed Elsewher e: Yes Loca tion: Gisselle Ricketts [facility] odify By: marcello cordova DateTime : 06/10/20 12 01:00:00 PM Not Available Not Available Not Available Fiber (psyllium husk) 0.52 gram capsule 05/07 completed Prescrib ed Elsewher e: Yes [facility] By: marcello cordova DateTime : 05/06/20 12 08:37:16 PM Not Available Not Available Not Available nitrofura ntoin monohydra te/macroc rystals 100 mg capsule TAKE 1 CAPSULE EVERY 12 HOURS FOR 5 DAYS . TAKE WITH FOOD/LEONARDO L 12/02 completed Not Available Not Available Not Available Fish Oil active Not Available Not Avai lable Not Available selenium sulfide 2.5 % lotion apply by topical route every day for 7 days to the affected area(s) 11/02 completed Prescrib ed Elsewher e: No Locat ion: [facility] odify By: pb tz Encou nter DateTime : 10/27/20 13 02:30:00 PM Not Available Not Available Not Available Vitals Date Recorded Body weight Body mass index (BMI) Body height Systolic And Diastolic Provider Name and Address Organization Details Last Updated DateTime 11/29/2023 28882.93 g 27.4 kg/m2 166.37 cm 114/74 mm[Hg] Argenis Valenzuela [facility] 11/29/2023 09:03:48 Date Recorded Body height Body mass index (BMI) Body weight Systolic And Diastolic Provider Name and Address Organization Details Last Updated DateTime 12/02/2024 166.37 cm 27.8 kg/m2 66551.98 g 122/74 mm[Hg] [facility] 12/02/2024 09:06:38 Date Recorded Body height Body mass index (BMI) Body weight Systolic And Diastolic Provider Name and Address Organization Details Last Updated DateTime 05/24/2025 166.37 cm 27.4 kg/m2 27789.36 g 131/76 mm[Hg] [facility] 05/24/2025 09:15:51 Date Recorded Body height Body mass index (BMI) Body weight Systolic And Diastolic Provider Name and Address Organization Details Last Updated DateTime 11/15/2022 166.37 cm 26.7 kg/m2 35373.56 g 132/68 mm[Hg] Martine Bucio [facility] 11/15/2022 14:08:12 Social History Question Answer Notes LastModified by Organizat ion Details LastModified Time Tobacco Smoking Status Never [facility]oker [facility] 11/29/2023 08:54:44 How Many Years Have You Consumed Alcohol? 30 [email or web address] Information not available 11/15/2022 Are You Blind Or Do You Have Difficulty Seeing? No [email or web address] Information n ot available 11/15/2022 What Is Your Level Of Caffeine Consumption? Moderate [email or web address] Information not available 11/15/2022 How Much Tobacco Do You Chew? None [email or web address] Information not available 11/15/2022 In The 14 Days Before Symptom Onset, Have You Had Close Contact With A Laboratory-confirm ed COVID-19 While That Case Was Ill? No [email or web address] Information n ot available 11/15/2022 In The 14 Days Before Symptom Onset, Have You Had Close Contact With A Person Who Is Under Investigation For COVID-19 While That Person Was Ill? No [email or web address] Information not available 11/15/2022 Have You Been To An Area Known To Be High Risk For COVID-19? No [email or web address] Information not available 11/15/2022 Are You Deaf Or Do You Have Serious Difficulty Hearing? No [email or web address] Information not available 11/15/2022 What Type Of Diet Are You Following? REGULAR [email or web address] Information n ot available 11/15/2022 What Is The Highest Grade Or Level Of School You Have Completed Or The Highest Degree You Have Received? [id number] [email or web address] Information not available 11/15/2022 Have You Ever Been Counseled For Unhealthy Alcohol Use? No [email or web address] Information not available 11/29/2023 Do You Use Protection During Sex? No [email or web address] Information not available 11/15/2022 Do You Use Your Seat Belt Or Car Seat Routinely? Yes Information not available 11/15/2022 Do You Have Smoke And Carbon Monoxide Detectors In Your Home? Yes [email or web address] Information not available 11/15/2022 How Much Tobacco Do You Smoke? No [email or web address] Information not available 11/15/2022 Do You Use Sunscreen Routinely? Yes [email or web address] Information not available 11/15/2022 Has Tobacco Cessation Counseling Been Provided? No [email or web address] Information not available 11/29/2023 Have You Used IV Drugs? No [email or web address] Information not available 11/15/2022 Do You Have Difficulty Walking Or Climbing Stairs? No [email or web address] Information not available 11/29/2023 Sex: Unknown Functional Status Question Answer Note LastModified by Organizat ion Details LastModified Time Do you use any illicit or recreational drugs? No [email or web address] Information not available 11/15/2022 Do you or have you ever used any other forms of tobacco or nicotine? No [email or web address] Information not available 11/29/2023 What is your level of alcohol consumption? Occasional [email or web address] Information not available 11/15/2022 Are you able to walk independently without assistance or assistive devices? YESWOREST Information not available 11/15/2022 Are you able to care for yourself independently? 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 No [email or web address] Information not available 11/29/2023 What is your exercise level? Moderate [email or web address] Information not available 11/15/2022 Mental Status Question Answer Note LastModified by Organization D etails LastModified Time Do you feel stressed (tense, restless, nervous, or anxious, or unable to sleep at night)? [id number] [email or web address] Information not available 11/15/2022 Family History Relationship Description Onset Age of this Age Resolved Age Notes LastModified by Organization Details LastModified Time Father Hypertensive disorder [email or web address] Not available 11/15 13:47:49 Mother Disorder of thyroid gland [email or web address] Not available 11/15 13:47:56 Mother Alzheimer's disease [email or web address] Not available 2024 09:00:25 Maternal Grandfather Diabetes mellitus [email or web address] Not available 11/15 13:47:42 Notes:Family history of Thyr oid disease, Family history of Hypertension Father: Hypertension Maternal grandfather: Diabetes mellitus Mother: Thyroid disease Medical History Condition Response Allergies (Food, seasonal, environmental ) N Other N Breast Cancer N Drug/Latex Allergies/Reactions N Blood Transfusion N Dermatologic Disorders N Lung Disease N Defects or Inherited Disease N Breast Problem N Gestational Diabetes Y Hematologic disorders N Anesthesia Complications N History of STI Y Deep Vein Thrombosis N Polycystic ovary syndrome N Anxiety Disorder N Autoimmune disease N Arthritis N Infertility N Polyps N Acid Reflux (GERD) N History of abnormal pap Y Cancer N Stroke N Varicosities N Neurologic/Epilepsy N Endometriosis N High Cholesterol N Headaches N Fibromyalgia N Kidney Disease N Heart Problems N Kidney or Bladder Problems N Thyroid Problems N GI Problems N Eating Disorder N Anemia N Art (IVF or FET) N Psychiatric Illness N Ovarian Cancer N Diabetes Y Pulmonary (TB, Asthma) N Hepatitis/Liver Disease N No Past Medical History Y Eczema N Urinary Tract Infection N Abuse/Domestic Violence N Asthma N Trauma/Violence N Depression/ depression N Heart Disease N Pre-Eclampsia N Hypertension N Osteoporosis N Thrombophilias N Gynecological History Statement/Question Response Abnormal Pap Y Date of Last Mammogram 10/18/2024 Date of LMP 01/02/2017 STIs/STDs Y HPV Vaccine N Colposcopy 06/02/2012 Current Control Method None Age at First Child 38 Are cycles usually normal N Date of Last Colonoscopy 11/18/2022 Sexually Active? Y Menses Monthly N Date of DEXA bone scan Age of first menstrual cycle 13 Date of Last Pap Smear 11/29/2023 Sexual Problems? Y Desired Control Method None LMP Unknown Obstetrics History GPAL:G 1 P 1 0 0 1 Type Value Full Term 1 Living 1 Total 1 Past Encounters Encounter ID Performer Location Encounter Start Date Encounter Closed Date Diagnosis/Indication Diagnosis SNOMED-CT Code Diagnosis ICD10 Code Diagnosis IMO Codes Diagnosis Note [id number] [facility] [address] [address] 11/15/2022 13:36:11 11/17/2022 18:58:41 Gynecologic examination 08955172 Z01.419 Z11.51 Suggested Calcium with Vitamin D 1200-1500m g daily. Patient advised to get an annual flu shot in the fall and she could obtain at [facility] or [facility] clinic. Also to obtain TDap vaccinatio n if you have not had one in the last 10 years. Recommend yearly mammograms . Encouraged monthly self breast exams. Encourage safe sexual practices, to use condoms and limit partners if not already in a monogamous relationsh ip. Engage in daily exercise of low impact aerobic exercise 45-60 minutes 4-5 times weekly. Avoid tobacco and illicit drugs as well as using moderation with alcohol intake less than 1-2 8 oz beverages daily. This lifestyle behavior pattern will lead to less health conditions and longer life span. If BMI greater than 25 weight watchers or dietary consult advised. All questions have been answered. Patient appears to understand informatio n, but if you have any questions please call or respond to this email. Pap/hpv sent STD Screen declined Genetic Screen discussed Colon Screen PCP Dexa Screen na Routine Labs PCPMammo PCP [id number] Christiano Case MD [place] [address] [address] 05/24/2025 08:59:54 05/24/2025 09:38:15 Removal of intrauterine contraceptive device [id number] Z30.508 [id number] 1. IUD removed on 05/24/25with out difficulty 2. Patient desires to check hormone labs in 8-12 weeks to ensure she is in menopause. Labs ordered.Mo nitor for bleeding, recommende d using back up protection until labs completed. [id number] [facility] [address] [address] 11/29/2023 08:54:21 11/29/2023 09:30:19 Gynecologic examination 22281511 Z01.419 Z11.51 Take Calcium with Vitamin D 12-1500mg daily. Do monthly self breast exams. It is advised to get annual flu shot in the fall and she could obtain at [facility] or [facility] care clinic. If you haven't received the Tdap vaccine in the last 10 years you should obtain one as well. Have mammogram yearly, bone density every 2-3 years and colonoscop y every 5-10 years depending on findings and history. Engage in daily exercise of low impact aerobic exercise 45-60 minutes 4-5 times weekly. Avoid tobacco and illicit drugs as well as using moderation with alcohol intake less than 1-2 8 oz beverages daily. This lifestyle behavior pattern will lead to less health conditions and longer life span. If BMI greater than 25 weight watchers or dietary consult advised. Questions have been answered. Patient appears to understand instructio ns, but if you have any further questions call or respond to this email Pap/hpv sentSTD Screen declinedGe netic Screen discussedC olon Screen UTD PCPDexa Screen naRoutine Labs UTD PCP A Mirena IUD prevents for up to 8 years, and also helps with heavy periods for up to 5 years in women who choose an IUD for control. Screening mammography 24 [id number] Z12.31 [id number] Christiano Case MD [place] [address] [address] 12/02/2024 08:58:37 12/02/2024 09:24:30 Gynecologic examination [id number] Z01.419 Annual gynecologi alonzo exam performed. Patient will come back in a year unless there are new symptoms. Suggest Calcium with Vitamin D if not eating in diet. Patient advised to get annual flu shot. Recommend yearly physicals and perform monthly breast exams. Genetic testing is available for patients with family history of cancer. Engage in safe sexual practices, use condoms. Encouraged to have daily exercise. Avoid tobacco and illicit drugs, moderation of alcohol. If BMI greater than 25 dietary consult advised. If you have any questions please call or email. mammogram- UTD, order given, pt to schedule colon cancer screening - UTD PCP DEXA scan- n/a Pap smear- UTD (2023 - ), will repeat in 2026 per ASCCP guidelines laboratory evaluation - PCP STI testing - declined A Mirena IUD prevents for up to 8 years, and also helps with heavy periods for up to 5 years in women who choose an IUD for control.Ton tiejacqueline's IUD expires 05/2025, pt to RTO for removal Screening mammography 24 [id number] Z12.31 Health Concerns Section Related Observation LastModified by Organization Detai ls LastModified Time None Recorded Concern Status LastModified by Organization Details LastModified Time None Recorded Advance Directives Directive None Recorded Payers Insurance Date Sequence Insurance Name Policy Number Policy Rubi Covered Member ID Rubi Member ID Guarantor Name 05/24/2025 1 [facility] [id number] Kellie Hutchins [id number] Kellie Hutchins Notes Date Note Type Note Provider Name and Address Organization Details Recorded Time 11/15/20 22 text/ht ml Annual GYNReported by PatientHistoryFor history, patient reportsno gynecologic complaints.Genitourinary symptomsFor menstrual cycle, patient reportsnormal menses (amenorrheic on iud mirena). For urinary symptoms, patient reportsno hematuriaandno incontinence. For vulva, patient reportsno genital lesion. For vagina, patient reportsnormal vaginal discharge.Breast symptomsFor breast, patient reportsno breast pain,no breast lump, andno nipple discharge.Endocrine symptomsFor sexual complaints, patient reportsno sexual complaints,no pain during intercourse, andnormal libido. For menopausal symptoms, patient reportsno menopausal symptomsandnormal vaginal lubrication.Psychological symptomsFor psychological symptoms, patient reportsno depression,no anxiety, andno pmdd.Preventative measuresFor preventive measures, patient reportsencourage self breast examination,encourage regular exercise,encourage no tobacco use,encourage regular mammograms starting age 40,followed with yearly pap smears,mammogram performed within the past year, andup to date on colonoscopy screening. Penny Sheehan, [facility]- [address], [place], [address], [facility] 11/17/2022 09:28:31 11/29/19 24 text/ht ml Annual GYNReported by PatientGenitourinary symptomsFor menstrual cycle, patient reportsnormal menses (amenorrheic on iud mirena). For urinary symptoms, patient reportsno hematuriaandno incontinence. For vulva, patient reportsno genital lesion. For vagina, patient reportsnormal vaginal discharge.Breast symptomsFor breast, patient reportsno breast pain,no breast lump, andno nipple discharge.ContraceptionFor current contraception, patient reportssatisfied with current contraceptionandintrauterine device (iud).Endocrine symptomsFor sexual complaints, patient reportsno sexual complaints,no pain during intercourse, andnormal libido. For menopausal symptoms, patient reportsno menopausal symptomsandnormal vaginal lubrication.Psychological symptomsFor psychological symptoms, patient reportsno depression,no anxiety, andno pmdd.Preventative measuresFor preventive measures, patient reportsencourage self breast examination,encourage regular exercise,encourage no tobacco use,encourage regular mammograms starting age 40,followed with yearly pap smears,needs to schedule mammogram, andup to date on colonoscopy screening. Penny Sheehan, [facility]- [address], [place], [address], [facility] 11/29/2023 09:22:56 12/02/19 25 text/ht ml Annual GYNReported by PatientHistoryFor history, patient reportsno gynecologic complaints.Genitourinary symptomsFor urinary symptoms, patient reportsno hematuriaandno incontinence. For vulva, patient reportsno genital lesion. For vagina, patient reportsnormal vaginal discharge. For menstrual cycle, (no cycles with iud).Breast symptomsFor breast, patient reportsno breast pain,no breast lump, andno nipple discharge.ContraceptionFor current contraception, patient reportssatisfied with current contraceptionandintrauterine device (iud).Endocrine symptomsFor sexual complaints, patient reportsno sexual complaints,no pain during intercourse, andnormal libido. For menopausal symptoms, patient reportsno menopausal symptomsandnormal vaginal lubrication.Psychological symptomsFor psychological symptoms, patient reportsno depression,no anxiety, andno pmdd.Preventative measuresFor preventive measures, patient reportsencourage self breast examination,encourage regular exercise,encourage no tobacco use, andencourage regular mammograms starting age 40. Patient presents for annual well woman exam. Patient denies concerns today. QUENTIN MURPHY NP [address], [place], [address], [facility] 12/02/2024 09:23:15 05/24/20 25 text/ht ml Patient presents for Mirena IUD removal.UPT negative.Informed consent obtained. Nena garcia, [facility] 05/24/2025 12:42:19 OBGyn Episode Ob Episode Information Episode Created Date Number of Fetuses Patient Bloodtype Patient rh Status Prepregnancy Weight lbs Domestic Partner Domestic Partner Phone Father Name District Superintendent Status 11/15/20 22 1 CLOSED Fetus Data First Name Last Name Admitted to NICU Weight (g) Sex Living Outcome Pediatric Complications Fetus ID Race Codes Race Delivery Type [phone] F Full Term [id number] Primary Yevgeniy Calculation Initial Yevgeniy Date Initial Exam Date Initial Exam Provider Initial Ultrasound Date Last Menstrual Period Date Ultra Sound Weeks Gestation 0 Eighteen To Twenty Week Yevgeniy Update Ultra Sound Date Fundal Height At Umbil Quickening Date Ultra Sound Latest Weeks Gestation Final Yevgeniy Confirmed By Final Yevgeniy Confirmed Date Final Yevgeniy Date Ultra Sound Latest Days Gestation 0 0 Menstrual History Last Menstrual Date Menses Monthly On Bcp Conception Prior Menses Frequency Hcg Plus Date Menarche Onset Age Delivery Information Delivery Date Delivery Type Labor Anesthesia Weeks Gestation Incision Type Labor Labor Length Hrs Delivered By Post Complications Tubal Sterilization Discharge Date Comments 9 GDM / Oligo Discharge Information Feeding Method Contraceptive Method Maternal HG B and HCT Levels
[2025-09-20 06:49] VITALS: BP 106/63; PULSE 63; RESP 16; TEMP 36.8; O2SAT 100; BMI 26.9
[2025-09-20] MEDS: LACTATED RINGERS 1,000 ML 150 ML IV CONT (07:02)
--- NOTE | 2025-09-20 07:17 | WPDANESEPPF ---
Anes - Initial Pre Proc Eval Procedure: Operation Date: 09/20/25 08:00 Proposed Procedures p Screening Colonoscopy - Denilson Miguel MD Date/Time: 09/20/25 07:17 Surgeon: Denilson Miguel MD Pre Op Diagnosis: Encounter for screening for malignant neoplasm of Patient Data Age: 54 Gender: F Height: 1.68 m Weight: 75.7 kg Last Vital Signs Temp 98.2 F 09/20/25 06:49 Pulse 63 09/20/25 06:49 Resp 16 09/20/25 06:49 BP 106/63 09/20/25 06:49 Pulse Ox 100 09/20/25 06:49 O2 Del Method Room Air 09/20/25 06:49 Allergies Allergy/AdvReac Type Severity Reaction Status Date / Time amoxicillin Allergy Mild HIVES Verified 09/20/25 06:36 ampicillin Allergy Mild hives Verified 09/20/25 06:36 sulfamethizole Allergy Mild hives Verified 09/20/25 06:36 sulfamethoxazole Allergy Mild HIVES Verified 09/20/25 06:36 trimethoprim Allergy Mild hives Verified 09/20/25 06:36 Home Medications ?Medication ?Instructions ?Recorded ?Confirmed ?Type omega 7-zyf-fdk-fish oil 1,000 mg 1 cap PO DAILY 09/08/25 09/20/25 History (120 mg-180 mg) capsule (Fish Oil) Patient hx anesthesia problems: none Family hx anesthesia problems: none Results Review: All pre-operative results and documents have been reviewed as part of the pre-operative evaluation. [facility] Past Medical History Medical History BMI 26.0-26.9,adult Screen for colon cancer Screening for lipid disorders Thyroid nodule BMI 33.0-33.9,adult Surgical History Surgical History No pertinent past surgical history Family History Family History Father Hypertension Grandparent Family history of coronary artery disease Mother , Dementia No problems noted. Sibling No problems noted. 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[employer] Gender identity (if verbalized by the patient): Female Sexual Orientation (if Verbalized by the Patient): Straight or Heterosexual Spiritual care concerns: No Agree to blood products: Yes Anes - Eval Final PreProcedure Day of Procedure 09/20/25 07:17 Heart: regular rate and rhythm Lungs: clear to auscultation Airway: Mallampati scale class 1 Neurological: alert and oriented Last oral intake: >/= 8 hours ASA classification: I Anesthetic plan: proceed Anesthesia type and monitoring: monitored anesthesia care Results Review: All pre-operative results and documents have been reviewed as part of the pre-operative evaluation. Informed Consent: The patient's anesthetic plan and its attendant risks and benefits were discussed with the patient/family/POA. Questions were solicited and answers provided to the satisfaction of the patient/family/POA.
--- NOTE | 2025-09-20 07:46 | P.HP_ITS ---
H&P: HPI History of Present Illness Date/Time: 09/20/25 07:46 Chief Complaint: Screening colonoscopy Narrative: This is the patient's first colonoscopy. 2 years ago colonoscopy was attempted, however the colon was not clean and she was rescheduled for today. There are no GI symptoms and there is no family history of colorectal cancer. Review of Systems Review of Systems: All systems reviewed & are unremarkable except as noted in HPI and below PMFSH Past Medical History Medical History BMI 26.0-26.9,adult Screen for colon cancer Screening for lipid disorders Thyroid nodule BMI 33.0-33.9,adult Surgical History Surgical History No pertinent past surgical history Family History Family History Father Hypertension Grandparent Family history of coronary artery disease Mother , Dementia No problems noted. Sibling No problems noted. 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[employer] Gender identity (if verbalized by the patient): Female Sexual Orientation (if Verbalized by the Patient): Straight or Heterosexual Spiritual care concerns: No Agree to blood products: Yes Meds Home Medications and Allergies Home Medications ?Medication ?Instructions ?Recorded ?Confirmed ?Type omega 0-nug-shu-fish oil 1,000 mg 1 cap PO DAILY 09/0809/20/25 History (120 mg-180 mg) capsule (Fish Oil) Allergies Allergy/AdvReac Type Severity Reaction Status Date / Time amoxicillin Allergy Mild HIVES Verified 09/20/25 06:36 ampicillin Allergy Mild hives Verified 09/20/25 06:36 sulfamethizole Allergy Mild hives Verified 09/20/25 06:36 sulfamethoxazole Allergy Mild HIVES Verified 09/20/25 06:36 trimethoprim Allergy Mild hives Verified 09/20/25 06:36 Vital Signs Vital Signs - 24 hr 09/20/25 06:49 Temperature 98.2 F Pulse Rate 63 Respiratory Rate 16 Blood Pressure 106/63 Pulse Oximetry 100 Oxygen Delivery Room Air Exam Const: General: cooperative and healthy appearing Resp: Effort & Inspection: normal respiratory effort and able to speak in complete sentences Auscultation: clear to auscultation bilaterally Cardio: Rate: regular rate Rhythm: regular rhythm GI: Inspection: normal to inspection GI Palp: No No hepatosplenomegaly pres ent Auscultation: normal bowel sounds Rectal Exam: deferred Skin: General skin exam: normal color Psych: Appearance: grossly normal Mental Status: mental status grossly normal Assessment and Plan Assessment and plan (1) Encounter for screening colonoscopy: Code(s): Z12.11 - Encounter for screening for malignant neoplasm of colon Status: Acute Assessment and Plan: The patient is deemed a good candidate for the procedure. Consent signed. Will proceed.
--- NOTE | 2025-09-20 08:04 | WPDANESPN ---
Anes - Prog Note Post-Op Date/Time: 09/20/25 08:04 Vital Signs: Last Vital Signs Temp 98.2 F 09/20/25 06:49 Pulse 63 09/20/25 06:49 Resp 16 09/20/25 06:49 BP 106/63 09/20/25 06:49 Pulse Ox 100 09/20/25 06:49 O2 Del Method Room Air 09/20/25 06:49 Pain Score (VAS): no Patient Feedback: Patient satisfied with anesthetic care.
[2025-09-20 08:18] VITALS: BP 100/63; PULSE 66; RESP 14; O2SAT 98
[2025-09-20 08:29] VITALS: BP 103/67; PULSE 69; RESP 16; O2SAT 100
[2025-09-20 08:38] VITALS: BP 115/73; PULSE 65; RESP 16; O2SAT 100
== END 2025-09-20 08:47 | disposition home or self-care (01) ==
PROVIDERS: PCP Family Medicine; Referring Provider Internal Medicine Gastroenterology; Visit Provider Internal Medicine Gastroenterology
PROC: 0DJD8ZZ Inspection of Lower Intestinal Tract, Via Natural or Artificial Opening Endoscopic (ICD-10-PCS; CPT 45378; principal; 2025-09-20 08:00)
DX: Z12.11 Encounter for screening for malignant neoplasm of colon (principal)
CPT/HCPCS: 45378